=== PATIENT | female | born 1990 | race Caucasian/White ===

== ENCOUNTER 2017-04-08 14:46 | Inpatient (IN) | payer MEDICAID ==
[~2017-04-08] VITALS: Ht 157.5 cm; Wt 63.5 kg
--- NOTE | ~2017-04-08 | PN ---
Unit #: [id number] #: [id number] Patient: MARTÍN CORDOVA [id number] [facility] [address] [place] [address] [id number] MR#: [id number] NAME: MARTÍN CORDOVA ROOM: [facility] Age: 26 Sex: F Admission Date: 04/08/2017 : 1990 Attending Physician: Leroy Rosa M.D. Admitting Physician: Leroy Rosa M.D. Primary Care Physician: Primary Care Physician No GUNNAR PROGRESS NOTES DATE 04/10/2017 DISCUSSION Martín has tolerated her medications with no significant adverse side effects. Her mood is a little bit better today with less anxiety and a brighter affect. She is alert and fully oriented. Her memory and concentration are fair. Her thought processes are logical with no active psychosis. ASSESSMENT 1. Bipolar depressed. 2. Opiate dependence. PLAN We will continue detox protocol and current medications. Dictated by... Leroy Rosa M.D. MRH/bzg TD: 04/11/2017 09:06 JOB #: [id number] [place] PROGRESS NOTES Page 1 of 1 X Leroy Rosa MD X PROGRESS NOTE
--- NOTE | ~2017-04-08 | PN ---
Unit #: [id number] #: [id number] Patient: MONTANA CORDOVA [id number] [facility] [address] [place] [address] [id number] MR#: [id number] NAME: MONTANA CORDOVA ROOM: [facility] Age: 26 Sex: F Admission Date: 04/08/2017 : 1990 Attending Physician: Leroy Rosa M.D. Admitting Physician: Leroy Rosa M.D. Primary Care Physician: Primary Care Physician Swati MAHER PROGRESS NOTES DATE 04/11/2017 DISCUSSION Montana appears better today. She says that her mood is better and her concentration is improved with the addition of Wellbutrin although she feels that she could tolerate a higher dose. Her mood is euthymic with a bright affect. She is alert and fully oriented with no active psychosis and no suicidal ideation. ASSESSMENT Bipolar depressed, opiate dependence. PLAN Will increase Wellbutrin XL to 300 mg daily and anticipate discharge soon. Dictated by... Yesi Lei/kwesi TD: 04/13/2017 09:54 JOB #: [id number] [place] PROGRESS NOTES Page 1 of 1 X Leroy Rosa MD PROGRESS NOTE
--- NOTE | ~2017-04-08 | DS ---
Unit #: [id number] #: [id number] Patient: MONTANA CORDOVA [id number] [place] [address] [id number] MR#: [id number] NAME: MONTANA CORDOVA ROOM: [facility] Age: 26 Sex: F Admission Date: 04/08/2017 : 1990 Discharge Date: 04/12/2017 Attending Physician: Leroy Rosa M.D. Primary Care Physician: Primary Care Physician No DISCHARGE SUMMARY REASON FOR ADMISSION Montana is a 26-year-old woman, with a history of bipolar disorder, who reports that she has been noncompliant with medication. She has been using cocaine and occasional opiates over the last several months. She was admitted for stabilization. DIAGNOSTIC STUDIES Laboratory data, HIV was negative. Other laboratory studies were within normal limits. HOSPITAL COURSE The patient was admitted and placed on suicide precautions. The opiate detox protocol was initiated but her symptoms were very mild. Abilify 10 mg for mood stability, Trileptal 150 mg b.i.d. for mood stability were both continued and Wellbutrin XL 150 mg daily was added for control of depression and a reported complaint of attention deficit problems. The patient had minimal detox symptoms and tolerated her medications well with significant improvement especially in the area of focus concentration and mood stability. Wellbutrin XL was increased to 300 mg daily with good tolerance and no disturbance of sleep or appetite. On the date of discharge, the patient was able to control for safety in the outpatient setting. DISCHARGE DIAGNOSES [place] I Bipolar disorder, depressed. Provisional attention deficit hyperactivity disorder, inattentive type. Opiate dependence. [place] II No diagnosis. [place] III History of hepatitis C. [place] IV [place] V INSTRUCTIONS TO PATIENT Follow up with [facility] and primary care physician. DISCHARGE MEDICATIONS 1. Abilify 10 mg at bedtime for mood stability 2. Trileptal 150 mg twice daily for mood stability 3. Wellbutrin XL 300 mg daily for depression and ADD 4. Trazodone 50 mg at bedtime as needed for insomnia Unit #: [id number] #: [id number] Patient: MONTANA CORDOVA CONDITION AT DISCHARGE Improved. PROGNOSIS Good. DIET AND ACTIVITY Per primary care doctor. Dictated by... Yesi Lei/kwesi TD: 04/13/2017 12:11 JOB #: [id number] DISCHARGE SUMMARY Page 1 of 1 X Leroy Rosa MD DISCHARGE SUMMARY
--- NOTE | ~2017-04-08 | HP ---
Unit #: [id number] #: [id number] Patient: MONTANA CORDOVA [id number] [place] [address] [id number] MR#: [id number] NAME: MONTANA CORDOVA ROOM: [facility] Age: 26 Sex: F Admission Date: 04/08/2017 : 1990 Attending Physician: Leroy Rosa M.D. Admitting Physician: Leroy Rosa M.D. Primary Care Physician: Primary Care Physician No HISTORY AND PHYSICAL HISTORY OF PRESENT ILLNESS Montana is a 26 year old admitted to [address] [place] [address] because of her drug use. She shoots heroin. PAST MEDICAL HISTORY Long history of opioid abuse to include IV heroin. PAST SURGICAL HISTORY Nothing reported. ALLERGIES No known drug allergies. SOCIAL HISTORY Smokes 1 pack per day. Denies alcohol. Admits to a long history of opioid abuse to include IV heroin. FAMILY HISTORY Medically noncontributory. REVIEW OF SYSTEMS CONSTITUTIONAL: No fever or chills. HEENT: Denies any sore throat, ear pain or runny nose. CARDIOVASCULAR: Denies chest pain, irregular heart rhythm or palpitations. CHEST: Denies shortness of breath or cough. No hemoptysis. GASTROINTESTINAL: Denies nausea, vomiting, diarrhea or chronic constipation. ENDOCRINE: Denies history of increased thirst or urination. No recent significant weight loss or gain. GENITOURINARY: Denies dysuria, frequency, or hematuria. SKIN: Denies any rashes. HEMATOLOGIC: Denies history of increased bleeding or bruising. MUSCULOSKELETAL: Denies any hot, swollen joints. No generalized muscle pain. NEUROLOGIC: Denies problems with vision or speech. No frequent, severe headaches. No numbness, tingling or weakness in any extremities. Denies loss of bladder or bowel control. CURRENT MEDICATIONS 1. Detox protocol. 2. Abilify 10 mg q.h.s. 3. Wellbutrin XL 150 mg daily. 4. Trileptal 150 mg b.i.d. Unit #: [id number] #: [id number] Patient: MONTANA CORDOVA PHYSICAL EXAMINATION GENERAL: Alert, well-nourished, in no apparent distress. VITAL SIGNS: Blood pressure 110/66, heart rate 90, respirations 16, temperature 98.6. WEIGHT: 140. HEIGHT: 5 feet 2 inches. SKIN: Warm and dry without rash. She has a large scab along the left side of her nose. There is no redness, swelling or pus noted. The scab is very dry and the area looks well-healed. HEENT: Normocephalic. TMs not viewed. Oral and nasal passages clear. Conjunctivae clear. PERRLA. EOMs intact. NECK: Supple without lymphadenopathy or thyromegaly. HEART: Regular rate and rhythm without murmur. LUNGS: Clear. ABDOMEN: Soft, nontender. : Not done. EXTREMITIES: No evidence of cyanosis, clubbing or edema. Moves all without focal deficit. NEUROLOGICAL: Grossly within normal limits. Cranial Nerves: II: Visual canales are intact. III, IV AND : Extraocular movements are intact. Pupils are equal, round and reactive to light. V: Facial sensation is grossly normal. VII: Facial movements and expression are normal. VIII: Auditory acuity grossly intact. IX, X: Uvula is midline. Phonation is normal. XI: Patient shrugs shoulders and turns head normally. XII: Tongue protrudes in the midline. Sensory and Motor Function: Sensory and motor sensation is grossly normal. Motor: moves all extremities well. Coordination: Gait is normal. Deep Tendon Reflexes: Intact. IMPRESSION Psychiatric admission. RECOMMENDATIONS PSYCHIATRIC: Per psychiatrist. MEDICAL: See no contraindication to participate in facility's activities. MEDICAL PROGNOSIS Good. MEDICAL CONDITION Stable. Dictated by... Shiela Bustillos P.A.-C. for Yesi Chaudhari/emil TD: 04/09/2017 18:45 JOB #: [id number] Unit #: [id number] #: [id number] Patient: MONTANA CORDOVA HISTORY AND PHYSICAL Page 1 of 1 X Shiela Bustillos HISTORY AND PHYSICAL
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
[2017-04-09 18:04] LABS: EOSINOPHIL# 0.1 X10e3 (0-0.7); EOSINOPHIL% 2.1 % (0.0-7.0); HEMOGLOBIN 11.3 gm/dL (12.0-16.0); LYMPHOCYTE# 1.9 X10e3 (1.0-3.5); LYMPHOCYTE% 39.5 % (17.0-45.0); MEAN CELL VOLUME 84.8 FL (83-96); MEAN CORPUSCULAR HEMOGLOBIN 26.7 PG (28-34); MEAN CORPUSCULAR HGB CONC 31.5 g/dL (30-36); MEAN PLATELET VOLUME 8.9 FL (6.5-11.5); MONOCYTE# 0.6 X10e3 (0-1.0); MONOCYTE% 12.5 % (3.0-12.0); NEUTROPHIL# 2.1 X10e3 (1.5-7.1); NEUTROPHIL% 44.9 % (40-75); PLATELET COUNT 268 X10e3 (140-420); RED BLOOD COUNT 4.25 X10e (3.90-5.30); RED CELL DISTRIBUTION WIDTH 17.2 % (11.0-15.5); WHITE BLOOD COUNT 4.8 X10e3 (4.0-10.5)
[2017-04-09 18:07] LABS: DIFF IND NO
[2017-04-09 18:20] LABS: ALBUMIN SERUM 3.4 g/dL (3.5-5.0); BILIRUBIN,TOTAL 0.3 mg/dL (0.2-2.0); CALCIUM SERUM 8.7 mg/dL (8.4-10.2); GLOM FILT RATE Estimated 77.7 mL/min (>60); POTASSIUM 4.4 mmol/L (3.5-5.1); PROTEIN TOTAL SERUM 6.6 g/dL (6.0-8.3)
[2017-04-10 09:57] LABS: URINE APPEARANCE CLEAR; URINE BILIRUBIN NEG (NEG); URINE BLOOD 3+ (NEG); URINE COLOR YELLOW; URINE GLUCOSE NEG (NEG); URINE KETONE NEG (NEG); URINE LEUKOCYTE ESTERASE 1+ (NEG); URINE NITRATE NEG (NEG); URINE PROTEIN NEG (NEG); URINE SPECIFIC GRAVITY 1.009 (1.003-1.035); URINE UROBILINOGEN 0.2 MG/DL (NEG)
[2017-04-10 10:00] LABS: URBCS1 AUWI 50-100 /[HPF] (0-2); URINE BACTERIA AUWI NEG (NEGATIVE); URINE SQUAMOUS EPITHELIAL CELL OCC /[HPF]
[2017-04-10 10:24] LABS: AMPHETAMINE NEG (NEG); BARBITURATES NEG (NEG); BENZODIAZEPINES NEG (NEG); COCAINE NEG (NEG); MARIJUANA NEG (NEG); OPIATES NEG (NEG); TRICYCLIC ANTIDEPRESSANTS NEG (NEG); U METHADONE NEG (NEG)
[2017-04-14 09:34] LABS: HA AB IGM (HEPPAN) Nonreactive (()); HB CORE AB IGM (HEPPAN) Nonreactive (Nonreactive); HB S AG (HEPPAN) Nonreactive (Nonreactive); HEP C AB (HEPPAN) Reactive (Nonreactive)
== END 2017-04-12 10:54 | disposition home or self-care (01) | DRG 885 ==
LOC: P2S 19:00
PROVIDERS: Psychiatry & Neurology Psychiatry
PROC: HZ2ZZZZ Detoxification Services for Substance Abuse Treatment (ICD-10-PCS; principal; 2017-04-08)
DX: F31.4 Bipolar disorder, current episode depressed, severe, without psychotic features (principal); F11.23 Opioid dependence with withdrawal; B19.20 Unspecified viral hepatitis C without hepatic coma; F17.210 Nicotine dependence, cigarettes, uncomplicated; F90.0 Attention-deficit hyperactivity disorder, predominantly inattentive type; G47.00 Insomnia, unspecified
CPT/HCPCS: 80053; 80074; 80307; 81003; 85025; 87522; 87806